=== PATIENT | female | born 1985 | race African-American/Black ===

== ENCOUNTER 2017-04-12 19:33 | Emergency (ER) | payer OTHER ==
[~2017-04-12] VITALS: Ht 175.3 cm; Wt 116.2 kg
[2017-04-12 20:00] LABS: URINE BILIRUBIN - DIPSTICK NEGATIVE (NEGATIVE); URINE BLOOD DIPSTICK NEGATIVE (NEGATIVE); URINE COLOR YELLOW; URINE GLUCOSE - DIPSTICK NEGATIVE (NEGATIVE); URINE KETONE TRACE mg/dL (NEGATIVE); URINE LEUK ESTERASE NEGATIVE (Negative); URINE NITRITE - DIPSTICK NEGATIVE (Negative); URINE PROTEIN - DIPSTICK NEGATIVE (NEG-TRACE); URINE SPECIFIC GRAVITY >=1.030
[2017-04-12 20:16] LABS: URINE CLARITY CLEAR
[2017-04-12 20:24] LABS: INFLUENZA A NONE DETECTED (NONE DETECT); INFLUENZA B NONE DETECTED (NONE DETECT)
[2017-04-12] MEDS ORDERED: ZOFRAN ODT4 MG PO (20:31)
[2017-04-12 20:45] VITALS: BP 114/64
== END 2017-04-12 20:45 | disposition home or self-care (01) | DRG 781 ==
LOC: ED 19:33
PROVIDERS: Emergency Medicine
DX: O21.9 Vomiting of pregnancy, unspecified (principal)